=== PATIENT | male | born 1980 | race American Indian/Alaskan Native ===

== ENCOUNTER 2018-07-13 16:05 | Emergency (ER) | payer SELFPAY ==
[~2018-07-13] VITALS: Ht 175.3 cm; Wt 68.0 kg
[2018-07-13] MEDS ORDERED: SODIUM CHLORIDE 0.9% 1,000 ML IV ONE (17:26)
[2018-07-13] MEDS ORDERED: ONDANSETRON HCL 4MG/2ML INJ IV STA (17:26)
[2018-07-13 18:15] LABS: BASOPHILS % 0.5 % (0.0-2.0); HEMATOCRIT. 45.3 % (42.0-52.0); HEMOGLOBIN. 15.8 g/dL (14.0-18.0); LYMPHOCYTES % 14.4 % (20.0-50.0); MEAN CORPUSCULAR HEMOGLOBIN 32.1 pg (28.0-32.0); MEAN CORPUSCULAR VOLUME 91.7 fL (80.0-94.0); MEAN PLATELET VOLUME 9.1 fl (7.4-10.4); MONOCYTES % 3.9 % (2.0-8.0); NEUTROPHILS % 81.2 % (40.0-76.0); PLATELET 146 x1000/uL (130-400); RED BLOOD CELL COUNT 4.93 mill/uL (4.7-6.1); RED CELL DISTRIBUTION WIDTH 13.3 % (11.6-14.6)
[2018-07-13 18:18] LABS: CHLORIDE 104 mEq/L (98-107)
[2018-07-13 18:19] LABS: PROTHROMBIN TIME 10.3 sec (9.6-11.0)
[2018-07-13 18:24] LABS: ETHANOL BLOOD 252 mg/dL
[2018-07-13 18:29] LABS: CREATINE KINASE 76 IU/L (39-308)
[2018-07-13 21:36] LABS: CLARITY URINE CLEAR (CLEAR); COLOR URINE YELLOW (YELLOW); KETONES URINE NEGATIVE (NEGATIVE); LEUKOCYTE ESTERASE URINE NEGATIVE (NEGATIVE); NITRITE URINE NEGATIVE (NEGATIVE); OCCULT BLOOD URINE NEGATIVE (NEGATIVE); PH URINE 5.5 (4.5-8.0); PROTEIN URINE NEGATIVE (NEGATIVE); SPECIFIC GRAVITY URINE 1.008 (1.005-1.030); UROBILINOGEN URINE 0.2 E.U./dL (0.2-1.0)
[2018-07-13 21:53] LABS: *AMPHETAMINES SCREEN URINE NEGATIVE (NEGATIVE)
[2018-07-13 21:54] LABS: *BARBITURATES SCREEN URINE NEGATIVE (NEGATIVE); *BENZODIAZEPINES SCREEN URINE NEGATIVE (NEGATIVE); *COCAINE SCREEN URINE NEGATIVE (NEGATIVE); METHADONE URINE SCREEN NEGATIVE (NEGATIVE); OPIATES URINE SCREEN NEGATIVE (NEGATIVE); PHENCYCLIDINE URINE SCREEN NEGATIVE (NEGATIVE)
[2018-07-13 21:56] LABS: CANNABINOID URINE SCREEN NEGATIVE (NEGATIVE)
[2018-07-14 05:28] VITALS: BP 106/57
== END 2018-07-14 05:33 | disposition home or self-care (01) ==
LOC: ER 16:05 → EDBD 16:05 → ER 07-14 05:33
DX: T51.0X1A Toxic effect of ethanol, accidental (unintentional), initial encounter (principal); G93.40 Encephalopathy, unspecified; R41.82 Altered mental status, unspecified; Z79.899 Other long term (current) drug therapy; Y92.480 Sidewalk as the place of occurrence of the external cause
CPT/HCPCS: 36415; 70450; 80053; 80305; 80307; 80320; 80329; 81003; 82550; 83690; 84443; 84484; 85025; 85610; 93005; 96361; 96374; 99284; J2405; J7030; G0480